=== PATIENT | male | born 1995 | race Caucasian/White ===

== ENCOUNTER → 2020-10-18 | Outpatient (CLI) | payer OTHER ==
--- NOTE | 2020-10-20 15:02 | ECHO ---
ECHOCARDIOGRAM DATE OF PROCEDURE: 10/18/2020 Age: 25 Gender: Male Height: 66 inches Weight: 175 pounds Body Surface Area: 1.89 m2 PATIENT LOCATION: Outpatient. REFERRING PROVIDER: HARDEEP [place]. MEASUREMENTS: 2D Measurements: RV 4.1 cm LV 4.7 cm Septum 1.0 cm Posterior wall 1.0 cm Aortic Root 3.1 cm LA 3.6 cm LVEF 65% Doppler Measurements: AV 1.04 m/s LVOT 0.98 m/s LVOT diameter 2.1 cm MV-E 74, A 41, EA ratio 1.8 Early mitral deceleration time 194 msec E prime medial 10.3, A prime medial 9, E prime lateral 18.5 PV 0.9 m/s Pulmonary artery acceleration time 150 msec RVSP 16 mmHg IVC 2.0 cm COMMENTS: Normal sinus rhythm without intraventricular conduction disturbance. M-mode and 2-dimensional echocardiography was performed with pulse, continuous wave, color flow, and tissue Doppler studies. Normal left ventricular size, wall thickness, and wall motion. Normal left atrial size, Doppler assessment of LV diastolic function, and estimated mean left atrial pressure. Right heart chambers were upper limits of normal size with normal wall motion and estimated pulmonary arterial pressure. Normal IVC size and collapse against an elevated central venous pressure. Normal aortic dimensions. Three equal sized aortic cusps of normal thickness and cusp separation. No insufficiency. Normal appearing mitral valvular apparatus and leaflet excursion with no posterior systolic buckling. Trace (physiologic) insufficiency. Normal appearing tricuspid valve with very mild insufficiency (physiologic). No apparent intracardiac mass or pericardial effusion. There did not appear to be any structural or functional abnormality to account for the patient's chest pain. In particular, there was no localized wall motion abnormality, evidence of pericardial inflammation, left ventricular outflow tract obstruction or right ventricular outflow tract obstruction, or pulmonary hypertension. MTDD
== END ==
LOC: M CARPUL 10:45
PROVIDERS: ATTEND Physician Assistant Medical
DX: R07.9 Chest pain, unspecified (principal)